=== PATIENT | male | born 1975 | race Two or more races ===

== ENCOUNTER → 2024-04-23 06:35 | Outpatient (REF) | payer OTHER, SELFPAY ==
[2024-04-23 08:02] LABS: % Basophils 1.9 % (0-2); % Eosinophils 4.6 % (0-6); % Immature Granulocytes 0.2 % (0-0.5); % Lymphocytes 41.5 % (20.5-51.1); % Monocytes 6.9 % (1.7-9.3); % Neutrophils 44.9 % (42.2-75.2); Absolute Basophils 0.1 10^3/uL (0-0.2); Absolute Eosinophils 0.2 10^3/uL (0-0.7); Absolute Lymphocytes 2.2 10^3/uL (1.2-3.4); Absolute Monocytes 0.4 10^3/uL (0.1-0.6); Absolute Neutrophils 2.3 10^3/uL (1.4-6.5); Hematocrit 46.3 % (39.0-52.0); Hemoglobin 16.6 g/dL (13.0-18.0); Mean Corp Hgb Conc. 35.9 g/dL (33.0-37.0); Mean Corpuscular Hgb 29.6 pg (27.0-31.0); Mean Corpuscular Volume 82.5 fL (80.0-94.0); Mean Platelet Volume 10.2 fL (7.4-10.4); Nucleated Red Blood Cells % 0 % (-); Platelet Count 345 10^3/uL (130-400); Red Blood Cell Count 5.61 10^6/uL (4.70-6.10); Red Cell Dist. Width 12.7 % (11.5-14.5); White Blood Cell Count 5.2 10^3/uL (4.8-10.8)
[2024-04-23 08:05] LABS: Urine Albumin Negative (Neg - Trace); Urine Bilirubin Negative (Negative); Urine Character Clear (Clear); Urine Color Yellow; Urine Glucose Negative (Negative); Urine Ketone Negative (Negative); Urine Leukocyte Negative (Negative); Urine Nitrite Negative (Negative); Urine Occult Blood Negative (Negative); Urine Urobilinogen Negative (Neg - 1+); Urine pH 6.5 (5.0-9.0)
[2024-04-23 08:36] LABS: ALT (SGPT) 22 U/L (0-50); AST (SGOT) 25 U/L (17-59); Albumin 4.4 g/dl (3.5-5.0); Alkaline Phosphatase 87 U/L (38-126); Blood Urea Nitrogen 16 mg/dl (9-20); Calcium 9.2 mg/dl (8.4-10.2); Carbon Dioxide 27 mmol/L (22-30); Chloride 103 mmol/L (98-107); Glucose 128 mg/dl (70-99); HDL Cholesterol 41 mg/dl; LDL Cholesterol, Calculated 51 mg/dl; Potassium 4.3 mmol/L (3.5-5.1); Sodium 139 mmol/L (135-145); Total Bilirubin 1.1 mg/dl (0.2-1.3); Total Cholesterol 120 mg/dl (50-199); Total Protein 7.4 g/dl (6.3-8.2); Triglyceride 142 mg/dl (10-149); Very Low Density Lipoprotein 28 mg/dl (0-30); eGFR > 60.00
[2024-04-23 08:40] LABS: Vitamin D, 25-OH*** 32.1 ng/mL (30-80)
[2024-04-23 08:53] LABS: TSH Reflex To Free T4 2.63 uIU/ml (0.47-4.68)
[2024-04-23 10:01] LABS: Glycohemoglobin (HgbA1c) 6.1 % (4.0-5.6)
[2024-04-25 15:13] LABS: FIT-Fecal Occult Blood Interp Negative
== END ==
LOC: CLINIC 06:35
PROVIDERS: ATTENDING PHYSICIAN Nurse Practitioner Acute Care
DX: Z00.00 Encounter for general adult medical examination without abnormal findings (principal); E11.65 Type 2 diabetes mellitus with hyperglycemia
CPT/HCPCS: 36415; 80053; 80061; 81003; 82306; 83036; 83520; 84443; 85025; G0103

== ENCOUNTER → 2024-07-20 06:52 | Outpatient (REF) | payer OTHER, SELFPAY ==
[2024-07-20 08:25] LABS: ALT (SGPT) 39 U/L (0-50); AST (SGOT) 33 U/L (17-59); Albumin 4.6 g/dl (3.5-5.0); Alkaline Phosphatase 75 U/L (38-126); Blood Urea Nitrogen 15 mg/dl (9-20); Calcium 9.3 mg/dl (8.4-10.2); Carbon Dioxide 28 mmol/L (22-30); Chloride 102 mmol/L (98-107); Glucose 129 mg/dl (70-99); HDL Cholesterol 37 mg/dl; LDL Cholesterol, Calculated 73 mg/dl; Potassium 4.2 mmol/L (3.5-5.1); Sodium 143 mmol/L (135-145); Total Bilirubin 1.6 mg/dl (0.2-1.3); Total Cholesterol 166 mg/dl (50-199); Triglyceride 282 mg/dl (10-149); Very Low Density Lipoprotein 56 mg/dl (0-30); eGFR > 60.00
[2024-07-20 08:40] LABS: Vitamin D, 25-OH*** 29.2 ng/mL (30-80)
[2024-07-20 08:41] LABS: Glycohemoglobin (HgbA1c) 5.7 % (4.0-5.6)
== END ==
LOC: REG 06:52
PROVIDERS: ATTENDING PHYSICIAN Specialist; FAMILY PHYSICIAN Internal Medicine Gastroenterology
DX: E11.65 Type 2 diabetes mellitus with hyperglycemia (principal); E78.5 Hyperlipidemia, unspecified; E55.9 Vitamin D deficiency, unspecified
CPT/HCPCS: 36415; 80053; 80061; 82306; 83036

== ENCOUNTER 2024-12-10 10:52 | Outpatient (RCR) | payer SELFPAY | END 2024-12-10 23:59 | disposition home or self-care (01) | LOC: RPT 10:52 | PROVIDERS: ATTENDING PHYSICIAN Surgery; FAMILY PHYSICIAN Nurse Practitioner Adult Health | DX: M79.605 Pain in left leg (principal); Z73.6 Limitation of activities due to disability | CPT/HCPCS: 97110; 97162 ==

== ENCOUNTER 2025-01-06 14:01 | Outpatient (RCR) | payer SELFPAY | END 2025-01-06 23:59 | disposition home or self-care (01) | LOC: RPT 14:01 | PROVIDERS: ATTENDING PHYSICIAN Surgery; FAMILY PHYSICIAN Nurse Practitioner Adult Health | DX: M79.605 Pain in left leg (principal); Z73.6 Limitation of activities due to disability | CPT/HCPCS: 97110; 97116; 97530 ==

== ENCOUNTER 2025-01-21 13:01 | Outpatient (RCR) | payer SELFPAY | END 2025-01-21 23:59 | disposition home or self-care (01) | LOC: RPT 13:01 | PROVIDERS: ATTENDING PHYSICIAN Surgery; FAMILY PHYSICIAN Nurse Practitioner Adult Health | DX: M79.605 Pain in left leg (principal); Z73.6 Limitation of activities due to disability; R26.2 Difficulty in walking, not elsewhere classified; M62.81 Muscle weakness (generalized); R26.89 Other abnormalities of gait and mobility; V99.XXXD Unspecified transport accident, subsequent encounter; Z98.890 Other specified postprocedural states | CPT/HCPCS: 97110; 97140 ==

== ENCOUNTER → 2025-02-14 09:24 | Outpatient (REF) | payer OTHER, SELFPAY ==
[2025-02-14 11:04] LABS: ALT (SGPT) 26 U/L (0-50); AST (SGOT) 25 U/L (17-59); Albumin 4.9 g/dl (3.5-5.0); Alkaline Phosphatase 87 U/L (38-126); Blood Urea Nitrogen 14 mg/dl (9-20); Calcium 9.5 mg/dl (8.4-10.2); Carbon Dioxide 27 mmol/L (22-30); Chloride 103 mmol/L (98-107); Glucose 120 mg/dl (70-99); HDL Cholesterol 32 mg/dl; Potassium 4.9 mmol/L (3.5-5.1); Sodium 143 mmol/L (135-145); Total Bilirubin 1.2 mg/dl (0.2-1.3); Total Cholesterol 181 mg/dl (50-199); Total Protein 8.4 g/dl (6.3-8.2); eGFR > 60.00
[2025-02-14 11:11] LABS: Triglyceride 457 mg/dl (10-149)
[2025-02-14 11:15] LABS: Vitamin D, 25-OH*** 28.3 ng/mL (30-80)
[2025-02-14 11:20] LABS: Glycohemoglobin (HgbA1c) 7.1 % (4.0-5.6)
[2025-02-14 11:33] LABS: LDL Cholesterol, Direct 62 mg/dl
== END ==
LOC: CLINIC 09:24
PROVIDERS: ATTENDING PHYSICIAN Nurse Practitioner Adult Health
DX: I10 Essential (primary) hypertension (principal); E78.5 Hyperlipidemia, unspecified; E11.65 Type 2 diabetes mellitus with hyperglycemia; E55.9 Vitamin D deficiency, unspecified
CPT/HCPCS: 36415; 80053; 80061; 82306; 83036; 83721

== ENCOUNTER 2025-03-02 06:41 | Outpatient (RCR) | payer SELFPAY | END 2025-03-02 23:59 | disposition home or self-care (01) | LOC: RPT 06:41 | PROVIDERS: ATTENDING PHYSICIAN Surgery; FAMILY PHYSICIAN Nurse Practitioner Adult Health | DX: M79.605 Pain in left leg (principal); Z73.6 Limitation of activities due to disability; R26.2 Difficulty in walking, not elsewhere classified; M62.81 Muscle weakness (generalized); R26.89 Other abnormalities of gait and mobility; V99.XXXD Unspecified transport accident, subsequent encounter; Z98.890 Other specified postprocedural states | CPT/HCPCS: 97110; 97140 ==